=== PATIENT | male | born 1980 | race Caucasian/White ===

== ENCOUNTER 2020-02-23 14:15 | Outpatient (CLI) | payer OTHER ==
--- NOTE | 2020-02-23 16:18 | MRI Report ---
PROCEDURE: Ankle RT W/O INDICATIONS: LESION OF LATERAL POPLITEAL NERVE TECHNIQUE: Noncontrast sagittal T1 spin echo and T2 inversion recovery, axial proton density fast spin echo and T2 inversion recovery, coronal T1 spin echo and T2 inversion recovery through the ankle/hindfoot. COMPARISON: None. FINDINGS: Image quality: Excellent. Bones and joints: Postsurgical changes are seen at the fifth metatarsal with associated metallic artifact. No acute tra becular bone injury is seen. Mild degenerative changes are seen at the dorsal aspect of the talonavic ular joint as well as at the second tarsometatarsal joint. No osteochondral lesion is seen in the lucrecia ar dome. Medial structures: The deltoid ligament and the spring ligament are intact. The posterior tibialis, flexor digitorum longus, and flexor hallucis longus tendons are intact and wi thin normal limits. The posterior tibial neurovascular bundle appears normal within the tarsal tunnel , without extrinsic mass effect. Lateral structures: The anterior and posterior distal tibiofibular ligaments are also intact. The anterior talofibular li gament, posterior talofibular ligament, and calcaneofibular ligament are intact. The peroneus longus and peroneus brevis tendons are intact and otherwise unremarkable. The sinus tarsi demonstrates normal fatty signal. Anterior structures: The tibialis anterior, extensor hallucis longus, and extensor digitorum longus tendons appear intact. Posterior and plantar structures: The Achilles tendon is intact. The medial and lateral bands of the plantar fascia are within normal l imits. No signs of acute or chronic denervation changes in the hindfoot. IMPRESSION: 1. No acute abnormality is seen in the ankle. No acute or chronic denervation changes in the intrins ic foot musculature. No soft tissue mass is identified. 2. Postsurgical changes are seen involving the included fifth metatarsal. 3. Mild degenerative changes at the second tarsometatarsal joint. Reviewed by: Gio Angulo MD on 02/23/2020 4:16 PM PST Approved by: Gio Angulo MD on 02/23/2020 4:16 PM PST Station ID: [id number]
--- NOTE | 2020-02-23 16:49 | MRI Report ---
PROCEDURE: Knee RT W/O INDICATIONS: LESION OF LATERAL POPLITEAL NERVE TECHNIQUE: Noncontrast sagittal PD fast spin echo and T2 fast spin echo with fat saturation, sagittal 3-D gradie nt sequence with fat saturation; coronal T1 spin echo and PD fast spin echo with fat saturation, and axial PD fast spin echo with fat saturation through the knee. COMPARISON: None. FINDINGS: Image quality: Excellent. Menisci: The medial and lateral menisci demonstrate normal morphology and internal signal. The meni scal root ligaments appear intact. Cruciate ligaments: The anterior and posterior cruciate ligaments appear intact. Medial structures: Low-grade MCL sprain is seen. The posterior oblique ligament, semimembranosus tend on insertions, and oblique popliteal ligament, and meniscocapsular junction appear intact. Visualize d portions of the pes anserinus tendons appear normal. No abnormal bursal fluid. Lateral structures: The lateral collateral ligament, long and short heads of the biceps femoris tend on appear intact. The popliteus tendon appears normal; the popliteofibular ligament appears intact. The posterosuperior and anteroinferior popliteomeniscal fascicles appear intact. The arcuate and fa bellofibular ligaments appear intact, around the lateral inferior geniculate artery. Iliotibial band appears normal. Anterior structures: The quadriceps and patellar tendons appear intact. Patellar alignment is farrukh l. No femoral trochlear dysplasia or ventral trochlear prominence. No edema in the infrapatellar fa t pad. Bones and cartilage: No bone marrow contusions or fractures. The cartilage of the medial and latera l femorotibial compartments, as well as the patellofemoral compartment, appears normal in thickness. Joint space: There is physiologic knee joint fluid. No Butcher?s cyst. Normal appearing synovial pli are incidentally noted. IMPRESSION: 1. Cruciate ligaments are intact. 2. No evidence of focal meniscal tear. 3. Suggestion of very low-grade MCL sprain. 4. No marrow edema. No fracture or dislocation. Articulating cartilages are intact. Reviewed by: Mateo Andersen MD on 02/23/2020 4:48 PM PST Approved by: Mateo Andersen MD on 02/23/2020 4:48 PM PST Station ID: [id number]
--- NOTE | 2020-02-24 07:18 | MRI Report ---
PROCEDURE: Lower Leg (Tib-Fib) RT W/O INDICATIONS: LESION OF LATERAL POPLITEAL NERVE TECHNIQUE: Noncontrast coronal and sagittal T1 spin echo and STIR; axial T1 spin echo and T2 fast spin echo with fat saturation through the right tibia and fibula centered in the mid shaft region. COMPARISON: Concurrent studies of the right ankle and knee. FINDINGS: Image quality: There is signal dropout on the proximal tibia and fibula. Bones: The visualized bone marrow demonstrates normal overall signal. No fractures or bone contusion s. No suspicious intraosseous lesions. Soft tissues: The scanned muscles demonstrate normal overall bulk and internal signal. No localized fatty muscle atrophy. No discrete soft tissue mass identified in the absence of intravenous contrast. There is mild focal dilatation of a venous structure in the right posterior calf likely representing a varix. IMPRESSION: 1. No discrete soft tissue mass identified in the absence of intravenous contrast. 2. No localized fatty muscle atrophy to suggest denervation changes. Reviewed by: Darek Mcfadden MD on 02/24/2020 7:16 AM PST Approved by: Darek Mcfadden MD on 02/24/2020 7:16 AM PST Station ID: [id number]
== END 2020-02-23 14:16 | disposition home or self-care (01) ==
LOC: DI 14:15
PROVIDERS: ATTEND Orthopaedic Surgery
DX: G57.31 Lesion of lateral popliteal nerve, right lower limb (principal)

== ENCOUNTER 2021-06-29 10:28 | Outpatient (CLI) | payer OTHER ==
--- NOTE | 2021-06-29 15:31 | MRI Report ---
PROCEDURE: Knee LT W/O INDICATIONS: PAIN IN KNEE TECHNIQUE: Noncontrast sagittal PD fast spin echo and T2 fast spin echo with fat saturation, sagittal 3-D gradie nt sequence with fat saturation; coronal T1 spin echo and PD fast spin echo with fat saturation, and axial PD fast spin echo with fat saturation through the knee. COMPARISON: None. FINDINGS: Image quality: Excellent. Menisci: Medial meniscus is intact. Is horizontal oblique tear involving anterior lateral meniscus is seen extending to inferior articulating surface. The meniscal root ligaments appear intact. Cruciate ligaments: The anterior and posterior cruciate ligaments appear intact. Medial structures: The medial collateral ligament appears intact. The posterior oblique ligament, s emimembranosus tendon insertions, and oblique popliteal ligament, and meniscocapsular junction appear intact. Visualized portions of the pes anserinus tendons appear normal. No abnormal bursal fluid. Lateral structures: Low to moderate grade LCL sprain/partial thickness tear is seen. The long and ronni rt heads of the biceps femoris tendon appear intact. The popliteus tendon appears normal; the poplit eofibular ligament appears intact. The posterosuperior and anteroinferior popliteomeniscal fascicles appear intact. The arcuate and fabellofibular ligaments appear intact, around the lateral inferior geniculate artery. Iliotibial band appears normal. Anterior structures: The quadriceps and patellar tendons appear intact. Patellar alignment is farrukh l. No femoral trochlear dysplasia or ventral trochlear prominence. No edema in the infrapatellar fa t pad. Bones and cartilage: No bone marrow contusions or fractures. The cartilage of the medial and latera l femorotibial compartments, as well as the patellofemoral compartment, appears normal in thickness. Joint space: There is physiologic knee joint fluid. No Butcher's cyst. Normal appearing synovial pli are incidentally noted. IMPRESSION: 1. Horizontal oblique tear involving anterior lateral meniscus extending to inferior articulating tyler face. No focal medial meniscal tear. 2. Cruciate ligaments are intact. Low to moderate grade sprain/tarsal thickness tear involving latera l collateral ligament. 3. No marrow edema. No fracture or dislocation. Articulating cartilages are intact. Reviewed by: Mateo Andersen MD on 06/29/2021 3:30 PM PDT Approved by: Mateo Andersen MD on 06/29/2021 3:30 PM PDT Station ID: [id number]
== END 2021-06-29 10:29 | disposition home or self-care (01) ==
LOC: DI 10:28
PROVIDERS: ATTEND Student in an Organized Health Care Education/Training Program
DX: S83.282A Other tear of lateral meniscus, current injury, left knee, initial encounter (principal); M23.8X2 Other internal derangements of left knee

== ENCOUNTER 2021-08-22 08:00 | Outpatient (CLI) | payer OTHER ==
--- NOTE | 2021-08-22 17:37 | XRAY Report ---
PROCEDURE: Knee 4 View LT INDICATIONS: KNEE PX TECHNIQUE: 4 views of the left knee(s) were acquired. COMPARISON: Left knee MRI dated 06/29/2021 FINDINGS: Bones: No fractures or dislocations. Mild medial femoral tibial compartment osteoarthritic changes are seen. No suspicious bony lesions. Soft tissues: Small to moderate joint effusion is noted. No suspicious soft tissue calcifications. IMPRESSION: Mild medial femoral tibial compartment osteoarthritis. No fracture or dislocation. Small to moderate joint effusion. Reviewed by: Mateo Andersen MD on 08/22/2021 5:36 PM PDT Approved by: Mateo Andersen MD on 08/22/2021 5:36 PM PDT Station ID: [id number]
== END 2021-08-22 23:59 | disposition home or self-care (01) ==
LOC: DI.WOS 08:00
PROVIDERS: ATTEND Physician Assistant Surgical
DX: M17.12 Unilateral primary osteoarthritis, left knee (principal); M25.462 Effusion, left knee

== ENCOUNTER 2021-10-11 12:03 | Outpatient (CLI) | payer OTHER ==
--- NOTE | 2021-10-11 13:15 | SLEEP CARE CONSULTATION ---
Information from patient questionnaire entered by Aimee Shaw. I have reviewed and concur with the information entered by Aimee Shaw. This document represents the service I personally performed and the decisions made by , Deja Dubose ARNP. History of Present Illness Service Date and Time: 10/11/2021 1203 Initial Cedar Sleepiness Scale score: 18 (8-11-22) Current Cedar Sleepiness Scale score: 16 (10/11/21) Additional HPI information: SREEKANTH STUART returns for follow up and results of the recently performed polysomnography. The patient was informed of the following findings: No significant sleep disordered breathing with an average AHI of 0.8 and everardo oxygen saturation of 86%. 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 I explained the pathophysiology behind obstructive sleep apnea. Patient does not have sleep apnea and was advised how weight gain could increase the risk of developing sleep apnea in the future. Patient has light snoring. Snoring can be reduced by weight loss. Weight loss is best achieved with diet consult. Patient instructed to contact PCP for referral. Snoring can also be treated with an oral appliance from a dentist. Advised to check insurance coverage. In addition, an ENT evaluation can be do to see if other treatment is indicated. Patient does not drink alcohol. Patient was cautioned about risks of drowsy driving until sleepiness symptoms resolve. Sleep Study - Results Type of Sleep Study: Polysomnography (F/U POLY, DONE 09/22/21) Prior sleep studies: No Polysomnography/Home Sleep Study results: IMPRESSION: The quality of the study is good. The patient had normal sleep efficiency. The sleep architecture was normal as well. Respiratory monitoring showed no significant sleep disordered breathing (AHI = 0.8) associated with frequent arousals, oxyhemoglobin desaturation and mild hypoxia (everardo oxygen saturation of 86%). The patient slept adequately in supine position (supine AHI = 1.7; non-supine = 0.35). Snore was infrequent and light in intensity. There was no significant periodic leg movement of sleep. Cardiac rhythm was normal sinus rhythm without significant arrhythmia. No abnormal behavior (parasomnia) observed during the night except for rare bruxism. Allergies and Home Medications Drug allergies reviewed: Yes (NKDA) Home medication list reviewed: Yes (no changes) Review of Systems Review of systems same as previous: Yes (no changes) Physical Exam Vital signs obtained and entered by: GREG, [employer] Blood Pressure: 100/62 (LEFT ARM) Cuff size: regular Heart Rate: 56 O2 Saturation: 97 Height: 5 ft 8 in Weight: 161 lb Body Mass Index: 24.5 BMI Classification: Healthy weight Impression and Plan 1. Snoring but no significant sleep disordered breathing. Patient advised that often weight loss will reduce snoring as well as apnea risk. An oral appliance can also be used for snoring. This would require a dental consultation. Patient cautioned not to use other online appliances as can cause bite issues. A list of accredited dentists in [facility] and one local dentist who makes oral appliances is available in the office. Patient is advised to check if insurance will cover. An ENT consult can also be helpful to determine if any other treatment is an option. 2. Bruxism. There were a few episodes of bruxism during the study. Patient may follow up with a dentist for further evaluation and treatment as necessary. * Follow up with dentist for evaluation as needed for bruxism * The patient is cautioned about driving until sleepiness is completely resolved. * Return as needed for follow up. Visit Type: In Office Time Spent with Patient (minutes): 12 Provider Statement: I spent 100% of the Face to Face Visit with the patient with greater than 50% spent counseling the patient and coordination of care.
[2021-10-11 13:16] VITALS: BP 100/62
== END 2021-10-11 12:04 | disposition home or self-care (01) ==
LOC: SC 12:03
PROVIDERS: ATTEND Nurse Practitioner Family
DX: R06.83 Snoring (principal); G47.63 Sleep related bruxism
CPT/HCPCS: 99212

== ENCOUNTER 2023-04-09 09:15 | Outpatient (CLI) | payer OTHER ==
--- NOTE | 2023-04-09 14:34 | MRI Report ---
PROCEDURE: Brain W/WO INDICATIONS: HEADACHE CONTRAST: clariscan 14.8ml TECHNIQUE: Noncontrast axial T1 spin echo, axial T2 fast spin echo, sagittal and axial FLAIR, coronal T2 fast sp in echo, axial gradient echo, axial diffusion and ADC through the brain. After the administration of contrast, axial and coronal T1 spin echo with fat saturation through the brain. COMPARISON: None. FINDINGS: Image quality: Excellent. CSF spaces: Basal cisterns are patent. No extra-axial fluid collections. Ventricles are normal in size and shape. Brain: No midline shift. No intracranial bleeds or masses. No abnormal intracranial enhancement. There is cerebral volume loss for age. There is periventricular white matter chronic small vessel is chemic change. The brainstem appears normal. Diffusion-weighted images demonstrate no acute ischemi c insults. No chronic ischemic insults. Normal intravascular flow voids are present. Skull and face: Calvarial marrow is normal in signal. Orbits appear normal. Sinuses: Sinuses and mastoids appear clear. IMPRESSION: 1.No cause for patient's symptoms identified. No acute intracranial abnormalities. 2.Normal MRI of the brain. Reviewed by: Artemio Borrego MD on 04/09/2023 2:33 PM PST Approved by: Artemio Borrego MD on 04/09/2023 2:33 PM PST Station ID: [id number]
== END 2023-04-09 09:16 | disposition home or self-care (01) ==
LOC: DI 09:15
DX: R51.9 Headache, unspecified (principal)
CPT/HCPCS: 70553; A9575